=== PATIENT | female | born 1960 | race Two or more races ===

== ENCOUNTER 2023-07-22 15:02 | Outpatient (AMB) | payer OTHER, SELFPAY ==
--- NOTE | 2023-07-22 15:51 | HO.NEPHOV ---
Vital Signs 07/22/23 15:55 Height 5 ft 6 in Weight 235 lb 6 oz BMI 38.0 BP 116/80 Blood Pressure Location Rt brachial Position Sitting Pulse 54 Pulse Source Pulse Oximeter Pulse Oximetry (%) 95 Oxygen Delivery Method Room Air Intake Visit Reasons: CKD/ LVM Manager Equity Required: No Accompanied by: Self / Same As Patient Allergies NSAIDS (Non-Steroidal Anti-Inflamma Allergy (Verified 07/18/23 13:17) Unknown HPI Comments Details: I had the privilege of seeing Katina in follow-up for mild chronic kidney disease. She is tolerating angiotensin receptor donna. She maintains good hydration. She does not take any nonsteroidal anti-inflammatories on a regular basis. She denies shortness of breath, pedal edema, chest pain, paroxysmal nocturnal dyspnea, orthopnea, nausea, vomiting or diarrhea. She has no urinary symptoms, hematuria or orthostasis. She remains compliant with her medications. Her blood pressure has been well controlled. She did not have any new active complaints at the time of this office visit. [facility] Medical History (Updated 07/22/23 @ 16:07 by Nash Scott MD) Chronic kidney disease Hypertension Surgical History (Updated 07/22/23 @ 16:00 by Nancy Reardon MA) History of tubal ligation History of hand surgery History of foot surgery Social History (Updated 07/22/23 @ 15:57 by Nancy Reardon MA) Alcohol intake: current Patient Tobacco Use Status: Current someday Tobacco user Substance Use Type: Marijuana Physical Exam Vital Signs: Last Vital Signs Pulse 54 07/22/23 15:55 BP 116/80 07/22/23 15:55 Pulse Ox 95 07/22/23 15:55 Oxygen Delivery Method Room Air 07/22/23 15:55 BMI result Body Mass Index 38.0 Const General: comfortable and no acute distress Orientation/consciousness: patient oriented x3 HEENT Head: Yes normocephalic Mouth: Normal oral and palatal mucosa present Eyes EOM: EOMs intact bilaterally Neck Neck: Yes supple Resp Auscultation: clear to auscultation bilaterally Cardio Jugular venous distension: no JVD Rate: regular rate GI Palpation (GI): Soft to palpation Auscultation: normal bowel sounds General: Yes no CVA tenderness Back/Spine/Pelvis Back: no CVA tenderness Skin General skin exam: no rashes or lesions noted Neuro General: patient oriented x3 and moves all extremities Extrem General: Yes no pedal edema Results Reviewed Nephrology Results: Hgb 15.5 g/dl (12.0-16.0) 07/22/23 WBC 9.9 X10*3/uL (4.8-10.8) 07/22/23 Plt Count 280 X10*3/uL (160-400) 07/22/23 Sodium 141 mmol/L (135-145) 07/22/23 Potassium 4.0 mmol/L (3.3-5.1) 07/22/23 Chloride 107 mmol/L (96-108) 07/22/23 Carbon Dioxide 24 mmol/L (22-29) 07/22/23 BUN 22 mg/dL (9-16) H 07/22/23 Creatinine 0.89 mg/dL (0.5-1.4) 07/22/23 Calcium 9.7 mg/dL (8.4-10.2) 07/22/23 Urine Protein Negative mg/dL (Neg-Trace) 07/22/23 Urine Creatinine 174.42 mg/dL 07/22/23 Protein/Creatinin Ratio 0.09 (<0.2) 07/22/23 Assessment & Plan Assessment & Plan (1) CKD (chronic kidney disease) stage 3, GFR 30-59 ml/min: Code(s): N18.30 - Chronic kidney disease, stage 3 unspecified Category: Medical Qualifiers: Chronic kidney disease stage 3 subtype: stage 3a (GFR 45-59) Qualified Code(s): N18.31 - Chronic kidney disease, stage 3a (2) Hypertension: Code(s): I10 - Essential (primary) hypertension Category: Medical Qualifiers: Hypertension type: primary hypertension Qualified Code(s): I10 - Essential (primary) hypertension Plan Katina has mild CKD. Her renal functions are at baseline. Her blood pressure is at goal. She is tolerating angiotensin receptor donna. She does not have any proteinuria. She avoids nonsteroidal anti-inflammatories. She maintains good hydration. She has no orthostatic symptoms or hypervolemia. I did not make any medication changes today. All questions were answered. Follow-up appointment given. Orders: Orders Calcium 07/22/23 I10 - Essential (primary) hypertension, N18.31 - Chronic kidney disease, stage 3a UA and rflx microscopic 07/22/23 I10 - Essential (primary) hypertension, N18.31 - Chronic kidney disease, stage 3a Creatinine 07/22/23 I10 - Essential (primary) hypertension, N18.31 - Chronic kidney disease, stage 3a Blood Urea Nitrogen 07/22/23 I10 - Essential (primary) hypertension, N18.31 - Chronic kidney disease, stage 3a Electrolytes 07/22/23 I10 - Essential (primary) hypertension, N18.31 - Chronic kidney disease, stage 3a Protein Creatinine Ratio, Ur 07/22/23 I10 - Essential (primary) hypertension, N18.31 - Chronic kidney disease, stage 3a Complete Blood Count Auto Diff 07/22/23 I10 - Essential (primary) hypertension, N18.31 - Chronic kidney disease, stage 3a Coding Level of Care Code Est Pt Level 4 (66995) Diagnoses Stage 3a chronic kidney disease N18.31 Chronic kidney disease stage 3 subtype: stage 3a (GFR 45-59) Primary hypertension I10 Hypertension type: primary hypertension
[2023-07-22 15:55] VITALS: BP 116/80; PULSE 54; O2SAT 95; BMI 38.0
== END 2023-07-22 16:12 | disposition home or self-care (01) ==
PROVIDERS: PCP Internal Medicine; Visit Provider Internal Medicine Nephrology
DX: N18.31 Chronic kidney disease, stage 3a (principal); I10 Essential (primary) hypertension
CPT/HCPCS: 99214

== ENCOUNTER → 2023-07-22 15:02 | Outpatient (BNVA) | payer MEDICAID, SELFPAY | PROVIDERS: PCP Internal Medicine; Visit Provider Internal Medicine Nephrology ==

== ENCOUNTER 2023-07-22 16:14 | Outpatient (REF) | payer OTHER, SELFPAY ==
[2023-07-22 17:09] LABS: MANUAL DIFF FLAG NO
[2023-07-22 17:13] LABS: Basophils Percent Auto 0.3 % (0-2); Eosinophils Absolute Auto 0.4 X10*3/uL (0.0-0.4); Eosinophils Percent Auto 4.2 % (0-4); Hematocrit 46.3 % (37.0-47.0); Hemoglobin 15.5 g/dl (12.0-16.0); Imm Gran Abs Auto 0.05 X10*3/uL (0.00-0.03); Imm Gran Pct Auto 0.5 % (0.0-0.4); Lymphocytes Absolute Auto 1.6 X10*3/uL (1.2-4.9); Lymphocytes Percent Auto 16.5 % (20-40); Mean Corpuscular HGB Conc 33.5 g/dl (31.0-35.0); Mean Corpuscular Hemoglobin 29.8 pg (27.0-33.0); Mean Corpuscular Volume 88.9 fL (80.0-98.0); Mean Platelet Volume 10.5 fL (9.4-12.3); Monocytes Absolute Auto 0.6 X10*3/uL (0.1-1.2); Monocytes Percent Auto 6.3 % (2-11); Neutrophils Absolute Auto 7.2 x10*3/uL (2.0-8.3); Neutrophils Percent Auto 72.2 % (45-73); Platelet Count 280 X10*3/uL (160-400); Red Blood Count 5.21 X10*6/uL (4.20-5.50); White Blood Count 9.9 X10*3/uL (4.8-10.8)
[2023-07-22 17:21] LABS: Appearance Urine Clear; Color Urine Yellow; Glucose Urine UA Negative (Negative); Leukocyte Esterase Urine Small (1+) (Negative); Nitrite Urine Positive (Negative); PH 5.5 (5.0-9.0); Specific Gravity - Urine 1.025 (1.005-1.025); UMIC TRIGGER UA YES; Urine Blood Negative (Negative); Urine Ketones Negative (Negative); Urine Protein Negative (Neg-Trace)
[2023-07-22 17:25] LABS: Bacteria Urine 4+ (None Seen); Hyaline Casts Urine 0-2 /LPF (0-2); RBC Urine 0-2 /HPF (0-2); Squamous Epithelial Cell Urine 0-2 /HPF (0-2)
[2023-07-22 17:29] LABS: Anion Gap 14 (12-20); Blood Urea Nitrogen 22 mg/dL (9-16); Calcium 9.7 mg/dL (8.4-10.2); Carbon Dioxide 24 mmol/L (22-29); Chloride 107 mmol/L (96-108); Estimated Glomerular Filt Rate > 60; Sodium 141 mmol/L (135-145)
[2023-07-22 17:35] LABS: Creatinine Urine 174.42 mg/dL; Protein/Creatinine Ratio, Ur 0.09 (<0.2); Total Protein Urine Random 15 mg/dL (<12)
== END 2023-07-22 16:15 | disposition home or self-care (01) ==
LOC: HO.HKASLDS 16:14
PROVIDERS: Visit Provider Internal Medicine Nephrology
DX: I12.9 Hypertensive chronic kidney disease with stage 1 through stage 4 chronic kidney disease, or unspecified chronic kidney disease (principal); N18.31 Chronic kidney disease, stage 3a
CPT/HCPCS: 36415; 80051; 81001; 82310; 82565; 82570; 84156; 84520; 85025; 99212

== ENCOUNTER 2024-01-20 15:02 | Outpatient (AMB) | payer OTHER, SELFPAY ==
--- NOTE | 2024-01-20 15:31 | HO.NEPHOV ---
Vital Signs 01/20/24 15:33 Height 5 ft 6 in Weight 225 lb 2 oz BMI 36.3 BP 140/82 H Blood Pressure Location Lt brachial Position Sitting Pulse 65 Pulse Source Pulse Oximeter Pulse Oximetry (%) 98 Oxygen Delivery Method Room Air Intake Visit Reasons: 6 mon follow up-Conf Choke Reamer Required: No Accompanied by: Self / Same As Patient Allergies NSAIDS (Non-Steroidal Anti-Inflamma Allergy (Verified 01/20/24 15:41) Unknown HPI Comments Details: I had the privilege of seeing Katina in follow-up for mild chronic kidney disease. She is off Amlodipine and angiotensin receptor donna. She maintains good hydration. She does not take any nonsteroidal anti-inflammatories on a regular basis. She denies shortness of breath, pedal edema, chest pain, paroxysmal nocturnal dyspnea, orthopnea, nausea, vomiting or diarrhea. She has no urinary symptoms, hematuria or orthostasis. She remains compliant with her medications. Her blood pressure has been well controlled. She did not have any new active complaints at the time of this office visit. [facility], [facility] Medical History (Updated 07/22/23 @ 16:07 by Nash Scott MD) Chronic kidney disease Hypertension Surgical History History of tubal ligation History of hand surgery History of foot surgery Social History Alcohol intake: current Patient Tobacco Use Status: Current someday Tobacco user Substance Use Type: Marijuana Review of Systems Const All systems reviewed & are unremarkable except as noted in HPI and below Physical Exam Vital Signs: Last Vital Signs Pulse 65 01/20/24 15:33 BP 140/82 H 01/20/24 15:33 Pulse Ox 98 01/20/24 15:33 Oxygen Delivery Method Room Air 01/20/24 15:33 BMI result Body Mass Index 36.3 Const General: comfortable and no acute distress Orientation/consciousness: patient oriented x3 HEENT Head: Yes normocephalic Mouth: Normal oral and palatal mucosa present Eyes EOM: EOMs intact bilaterally Neck Neck: Yes supple Resp Auscultation: clear to auscultation bilaterally Cardio Jugular venous distension: no JVD Rate: regular rate GI Palpation (GI): Soft to palpation Auscultation: normal bowel sounds General: Yes no CVA tenderness Back/Spine/Pelvis Back: no CVA tenderness Skin General skin exam: no rashes or lesions noted Neuro General: patient oriented x3 and moves all extremities Extrem General: Yes no pedal edema Assessment & Plan Assessment & Plan (1) Hypertension: Code(s): I10 - Essential (primary) hypertension Category: Medical Qualifiers: Hypertension type: primary hypertension Qualified Code(s): I10 - Essential (primary) hypertension (2) CKD (chronic kidney disease) stage 3, GFR 30-59 ml/min: Code(s): N18.30 - Chronic kidney disease, stage 3 unspecified Category: Medical Qualifiers: Chronic kidney disease stage 3 subtype: stage 3a (GFR 45-59) Qualified Code(s): N18.31 - Chronic kidney disease, stage 3a Sherrie Ambriz has mild CKD. Her renal functions are at baseline. Her blood pressure is at goal. She does not have any proteinuria. She avoids nonsteroidal anti-inflammatories. She maintains good hydration. She has no orthostatic symptoms or hypervolemia. I did not make any medication changes today. All questions were answered. Follow-up appointment given. Orders: Orders Blood Urea Nitrogen 6 Months I10 - Essential (primary) hypertension Electrolytes 6 Months I10 - Essential (primary) hypertension Calcium 6 Months I10 - Essential (primary) hypertension Creatinine 6 Months I10 - Essential (primary) hypertension Protein Creatinine Ratio, Ur 6 Months I10 - Essential (primary) hypertension Coding Level of Care Code Est Pt Level 4 (23640) Diagnoses Primary hypertension I10 Hypertension type: primary hypertension Stage 3a chronic kidney disease N18.31 Chronic kidney disease stage 3 subtype: stage 3a (GFR 45-59)
[2024-01-20 15:33] VITALS: BP 140/82; PULSE 65; O2SAT 98; BMI 36.3
== END 2024-01-20 16:04 | disposition home or self-care (01) ==
LOC: HO.HKAS 15:02
PROVIDERS: PCP Internal Medicine; Visit Provider Internal Medicine Nephrology
DX: I10 Essential (primary) hypertension (principal); N18.31 Chronic kidney disease, stage 3a
CPT/HCPCS: 99214

== ENCOUNTER → 2024-01-20 15:02 | Outpatient (BNVA) | payer OTHER, SELFPAY | PROVIDERS: PCP Internal Medicine; Visit Provider Internal Medicine Nephrology | DX: I12.9 Hypertensive chronic kidney disease with stage 1 through stage 4 chronic kidney disease, or unspecified chronic kidney disease (principal); N18.31 Chronic kidney disease, stage 3a | CPT/HCPCS: 99212 ==

== ENCOUNTER 2024-07-22 15:07 | Outpatient (AMB) | payer OTHER, SELFPAY ==
--- NOTE | 2024-07-22 15:23 | HO.NEPHOV ---
Vital Signs 07/22/24 15:26 Height 5 ft 6 in Weight 226 lb 4 oz BMI 36.5 BP 118/74 Blood Pressure Location Rt brachial Position Sitting Pulse 65 Pulse Source Pulse Oximeter Pulse Oximetry (%) 94 Oxygen Delivery Method Room Air Intake Visit Reasons: 6mon follow up-Conf Snack Stewardess Required: No Accompanied by: Self / Same As Patient Allergies NSAIDS (Non-Steroidal Anti-Inflamma Allergy (Verified 07/22/24 15:26) Unknown HPI Comments Details: Katina was seen in follow-up for mild chronic kidney disease. She is off Amlodipine and angiotensin receptor blocke but on HCTZ. She maintains good hydration. She does not take any nonsteroidal anti-inflammatories on a regular basis. She denies shortness of breath, pedal edema, chest pain, paroxysmal nocturnal dyspnea, orthopnea, nausea, vomiting or diarrhea. She has no urinary symptoms, hematuria or orthostasis. She remains compliant with her medications. Her blood pressure has been well controlled. She did not have any new active complaints at the time of this office visit. [facility] Medical History (Updated 07/22/23 @ 16:07 by Nash Scott MD) Chronic kidney disease Hypertension Surgical History History of tubal ligation History of hand surgery History of foot surgery Social History Alcohol intake: current Patient Tobacco Use Status: Current someday Tobacco user Substance Use Type: Marijuana Physical Exam Vital Signs: Last Vital Signs Pulse 65 07/22/24 15:26 BP 118/74 07/22/24 15:26 Pulse Ox 94 07/22/24 15:26 Oxygen Delivery Method Room Air 07/22/24 15:26 BMI result Body Mass Index 36.5 Const General: comfortable and no acute distress Orientation/consciousness: patient oriented x3 HEENT Head: Yes normocephalic Mouth: Normal oral and palatal mucosa present Eyes EOM: EOMs intact bilaterally Neck Neck: Yes supple Resp Auscultation: clear to auscultation bilaterally Cardio Jugular venous distension: no JVD Rate: regular rate GI Palpation (GI): Soft to palpation Auscultation: normal bowel sounds General: Yes no CVA tenderness Back/Spine/Pelvis Back: no CVA tenderness Skin General skin exam: no rashes or lesions noted Neuro General: patient oriented x3 and moves all extremities Results Reviewed Nephrology Results: Hgb 15.5 g/dl (12.0-16.0) 07/22/23 WBC 9.9 X10*3/uL (4.8-10.8) 07/22/23 Plt Count 280 X10*3/uL (160-400) 07/22/23 Sodium 141 mmol/L (135-145) 07/22/23 Potassium 4.0 mmol/L (3.3-5.1) 07/22/23 Chloride 107 mmol/L (96-108) 07/22/23 Carbon Dioxide 24 mmol/L (22-29) 07/22/23 BUN 22 mg/dL (9-16) H 07/22/23 Creatinine 0.89 mg/dL (0.5-1.4) 07/22/23 Calcium 9.7 mg/dL (8.4-10.2) 07/22/23 Urine Protein Negative mg/dL (Neg-Trace) 07/22/23 Urine Creatinine 174.42 mg/dL 07/22/23 Protein/Creatinin Ratio 0.09 (<0.2) 07/22/23 Assessment & Plan Assessment & Plan (1) Hypertension: Code(s): I10 - Essential (primary) hypertension Category: Medical Qualifiers: Hypertension type: primary hypertension Qualified Code(s): I10 - Essential (primary) hypertension Plan Katina has mild CKD. Her renal functions are at baseline. Her blood pressure is at goal. She does not have any proteinuria. She avoids nonsteroidal anti-inflammatories. She maintains good hydration. She has no orthostatic symptoms or hypervolemia. I did not make any medication changes today. All questions were answered. Follow-up appointment given. Orders: Orders Creatinine 7 Months I10 - Essential (primary) hypertension Blood Urea Nitrogen 7 Months I10 - Essential (primary) hypertension Calcium 7 Months I10 - Essential (primary) hypertension Protein Creatinine Ratio, Ur 7 Months I10 - Essential (primary) hypertension Electrolytes 7 Months I10 - Essential (primary) hypertension UA and rflx microscopic 7 Months I10 - Essential (primary) hypertension Coding Level of Care Code Est Pt Level 4 (93111) Diagnoses Primary hypertension I10 Hypertension type: primary hypertension
[2024-07-22 15:26] VITALS: BP 118/74; PULSE 65; O2SAT 94; BMI 36.5
--- OUTSIDE RECORDS SUMMARY | 2024-07-22 17:01 | XMS_ITS | Clinical Summary ---
Author Organization [facility] Address [address] [place] [address] Care Team Providers Care Java Lead Architect Name Role Phone Unavailable Primary Care Provider Unavailabl e Social History Tobacco Use Types Packs/Day Years Used Date Smoking Tobacco: Never Assessed Comments Unknown Sex and Gender Information Value Date Recorded Sex Assigned at Not on file Legal Sex Female 4:47 PM EST Gender Identity Not on file Sexual Orientation Not on file Plan of Treatment Health Maintenance Due Date Last Done Comments Breast Cancer Screening 1960 Cervical Cancer Screening: P ap Smear 1981 Pneumococcal Vaccine: 50+ Ye ars (1 of 1 - PCV) 2010 Zoster Vaccines (1 of 2) 2010 Colorectal Cancer Screening: Colonoscopy 02/20/2022 Depression Screening 02/20/2022 HIV Screening 02/20/2022 Hepatitis C Screening 02/20/2022 Social Influencers of Health Screening 02/20/2022 COVID-19 Vaccine (1 - 2023-2 5 season) 2023 Influenza Vaccine (Season Ended) 2024 DTaP,Tdap,and Td Vaccines (2 - Td or Tdap) 02/08/2029 02/08/2019 RSV Immunization Adult Patie nts (1 - 1-dose 75+ series) 12/18/2035 HIB Vaccines Aged Out No longer eligi ble based on patient's age to complete this topic HPV Vaccines Aged Out No longer eligi ble based on patient's age to complete this topic Hepatitis A Vaccines Aged Out No long er eligible based on patient's age to complete this topic Hepatitis B Vaccines Aged Out No long er eligible based on patient's age to complete this topic IPV Vaccines Aged Out No longer eligi ble based on patient's age to complete this topic MMR Vaccines Aged Out No longer eligi ble based on patient's age to complete this topic Meningococcal ACWY Vaccine Aged Out N o longer eligible based on patient's age to complete this topic Meningococcal B Vaccine Aged Out No l onger eligible based on patient's age to complete this topic Pneumococcal Vaccine: Pediat rics (0 to 5 Years) and At-Risk Patients (6 to 64 Years) Aged Out No longer eligi ble based on patient's age to complete this topic RSV Immunization Patients Un shamar 20 months Aged Out No longer eligible b ased on patient's age to complete this topic Varicella Vaccines Aged Out No longer eligible based on patient's age to complete this topic
--- OUTSIDE RECORDS SUMMARY | 2024-07-22 17:01 | XMS_ITS | Clinical Summary ---
Author Organization [facility] Address [address] [place] [address] Phone Care Team Providers Care Oil Spraying Machine Operator Name Role Phone MartinezGoldenJusat Martinez Primary Care Provider Allergies Active Allergy Reactions Criticality Noted Date Comments Nsaids 06/18/2020 Medications aspirin (ST FESTUS) 81 MG EC tablet Take 1 tablet by mouth 1 (one) time each day 4 Active losartan (COZAAR) 50 MG tablet Take 1 tablet by mouth 1 (one) time each day Active omeprazole (PriLOSEC) [address] capsule Take 1 capsule by mouth 1 (one) time each day Active famotidine (PEPCID) 20 MG tablet Take 1 tablet by mouth 1 (one) time each day 1 Active atorvastatin (LIPITOR) 40 MG tablet Take 1 tablet by mouth 1 (one) time each day 1 Active ProAir HFA 108 (90 Base) MCG/ACT inhaler TAKE 2 PUFFS INHALATION 4 TIMES A DAY NEEDED FOR WHEEZING 1 Active Diclofenac Sodium 1 % gel APPLY 1 APPLICATION TOPICALLY 4 TIMES A DAY 1 Active Active Problems Problem Noted Date Diagnosed Date Hypertensive disorder 03/27/2021 Hypertension 03/27/2021 Acute nontraumatic kidney injury 06/18/2020 Benign hypertensive renal disease 06/18/2020 Blood in urine 06/18/2020 Chronic kidney disease stage 3 06/18/2020 Resolved Problems Problem Noted Date Diagnosed Date Resolved Date Arterial embolism 03/27/2021 03/27/2021 Overview (03/27/2021): eval for thrombophilia and FLORINDA and angiography were all negative and the thromboemboli never recurred. Asthma 03/27/2021 03/27/2021 Bunion of unspecified foot 03/27/2021 0 03/27/2021 Cannabis abuse 03/27/2021 03/27/2021 Chronic low back pain 03/27/20212021 Depressive disorder 03/27/2021 03/27/19 22 Diverticular disease 03/27/2021 022 Overview (03/27/2021): CT imaging showed some colon wall thickening. GI thought likely from segmental colitis associated with diverticulosis (SCAD) rather than inflammatory bowel disease as the distribution of colon wall thickening is limited to the sigmoid colon where she has diverticulosis and the colonoscopy was normal other than diverticulosis on 04/08/19 Dysplasia of cervix uteri 03/27/2021 Overview (03/27/2021): s/p laser Fracture of ankle 03/27/2021 03/27/2021 Overview (03/27/2021): several surgeries left ankle. left ankle now larger than right with chronic pain and often swelling. 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 Severe obesity 03/27/2021 03/27/2021 Tobacco user 03/27/2021 03/27/2021 Diabetes mellitus 06/18/2020 03/27/2021 Immunizations Immunization Administration Dates Next Due Moderna SARS-COV-2 02/13/2021,08/23/2020, 021 Pneumococcal Polysaccharide 05/05/2012, 4,02/11/2001 Shingrix 08/21/2021,06/18/2021 Tdap 02/08/2019,01/14/2013 Family History Medical History Relation Comments Hypertension Father grandmother Relation Status Comments Father Mother Alive Social History Tobacco Use Types Packs/Day Years Used Date Smoking Tobacco: Former Cigarettes Smokeless Tobacco: Former Tobacco Cessation:Counseling Given: Not Answered Alcohol Use Standard Drinks/Week Comments Yes 0 (1 standard drink = 0.6 oz pure alcohol) Alcoholic Drinks/day: Occasional social drink Comments Unknown Sex and Gender Information Value Date Recorded Sex Assigned at Not on file Legal Sex Female 5:08 PM EST Gender Identity Not on file Sexual Orientation Not on file Last Filed Vital Signs Vital Sign Reading Time Taken Comments Blood Pressure 122/80 08/22/2022 4:48 PM EDT Pulse 68 12/01/2018 12:00 PM EDT Temperature - - Respiratory Rate - - Oxygen Saturation - - Inhaled Oxygen Concentration - - Weight 104 kg (230 lb 3.2 oz) 08/22/2022 4:48 PM EDT Height 157.5 cm (5' 2 ) 06/21/2019 12:00 PM EDT Body Mass Index 42.1 06/21/2019 12:00 PM EDT Plan of Treatment Health Maintenance Due Date Last Done Comments Breast Cancer Screening 1960 Colorectal Cancer Screening: Annual FOBT 2009 Colorectal Cancer Screening: Colonoscopy 2009 Colorectal Cancer Screening: Sigmoidoscopy 2009 Pneumococcal Vaccine: 50+ Years (3 of 3 - PCV) 05/05/2013 05/05/2012, 12/26/2003, 02/11/2001 Influenza Vaccine (Season Ended) 2024 Pneumococcal Vaccine: Peds ( 0 to 5 Years) and At-Risk Patients (6 to 49 Years) Discontinued 05/05/2012, 12/26/2003, 02/11/2001 Hepatitis B Vaccine Aged Out No longe r eligible based on patient's age to complete this topic Insurance [facility] [place] [address] Medicaid Care Teams Oil Spraying Machine Operator Relationship Specialty Start Date End Date Justa Arnold [address] [place] [address] PCP - General 04/03/20
== END 2024-07-22 15:35 | disposition home or self-care (01) ==
LOC: HO.HKAS 15:08
PROVIDERS: PCP Internal Medicine; Visit Provider Internal Medicine Nephrology
DX: I10 Essential (primary) hypertension (principal)
CPT/HCPCS: 99214

== ENCOUNTER → 2024-07-22 15:07 | Outpatient (BNVA) | payer OTHER, SELFPAY | PROVIDERS: PCP Internal Medicine; Visit Provider Internal Medicine Nephrology | DX: I10 Essential (primary) hypertension (principal) | CPT/HCPCS: 99212 ==

== ENCOUNTER 2025-03-14 14:37 | Outpatient (REF) | payer OTHER, SELFPAY ==
--- OUTSIDE RECORDS SUMMARY | 2025-03-14 17:58 | XMS_ITS | Clinical Summary ---
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
--- OUTSIDE RECORDS SUMMARY | 2025-03-14 17:58 | XMS_ITS | Clinical Summary ---
Author Organization [facility] Address [address] [place] [address] Care Team Providers Care Research Technician Name Role Phone Unavailable Primary Care Provider [...] Breast Cancer Screening 1960 Colorectal Cancer Screening: Colonoscopy 1960 Cervical Cancer Screening: P ap Smear 1981 Pneumococcal Vaccine: 50+ Ye ars (1 of 1 - PCV) 2010 Zoster Vaccines (1 of 2) 2010 HIV Screening 02/20/2022 Hepatitis C Screening 02/20/2022 Social Influencers of Health Screening 02/20/2022 Depression Screening 03/24/2024 COVID-19 Vaccine (1 - 2024-2 6 season) 2024 Influenza Vaccine (#1) 2024 DTaP,Tdap,and Td Vaccines (2 - Td [...]
[2025-03-14 18:36] LABS: Anion Gap 12 (12-20); Blood Urea Nitrogen 19 mg/dL (9-16); Calcium 9.3 mg/dL (8.4-10.2); Carbon Dioxide 29 mmol/L (22-29); Chloride 112 mmol/L (96-108); Estimated Glomerular Filt Rate > 60; Potassium 4.1 mmol/L (3.3-5.1); Sodium 149 mmol/L (135-145)
[2025-03-14 18:50] LABS: Protein/Creatinine Ratio, Ur 0.08 (<0.2); Total Protein Urine Random 8 mg/dL (<12)
[2025-03-14 18:52] LABS: Appearance Urine Clear; Glucose Urine UA Negative (Negative); PH 6.0 (5.0-9.0); Specific Gravity - Urine 1.020 (1.005-1.025); UMIC TRIGGER UA YES
== END 2025-03-14 14:38 | disposition home or self-care (01) ==
LOC: HO.HKASLDS 14:37
PROVIDERS: Visit Provider Internal Medicine Nephrology
DX: I10 Essential (primary) hypertension (principal)
CPT/HCPCS: 36415; 80051; 81001; 81003; 82310; 82565; 82570; 84156; 84520

== ENCOUNTER 2025-03-15 13:40 | Outpatient (AMB) | payer OTHER, SELFPAY ==
--- NOTE | 2025-03-15 13:44 | HO.NEPHOV ---
Vital Signs 03/15/25 13:45 Height 5 ft 6 in Weight 226 lb BMI 36.5 BP 110/72 Blood Pressure Location Lt brachial Position Sitting Pulse 57 Pulse Source Pulse Oximeter Pulse Oximetry (%) 95 Oxygen Delivery Method Room Air Intake Visit Reasons: 7mon follow-up w/labs-Mailbox Full Traffic Police Officer Required: No Accompanied by: Self / Same As Patient Allergies NSAIDS (Non-Steroidal Anti-Inflamma Allergy (Verified 03/15/25 13:46) Unknown HPI Comments Details: Katina was seen in follow-up for mild chronic kidney disease. She is off Amlodipine and angiotensin receptor blocke but on HCTZ. She maintains good hydration. She does not take any nonsteroidal anti-inflammatories on a regular basis. She denies shortness of breath, pedal edema, chest pain, paroxysmal nocturnal dyspnea, orthopnea, nausea, vomiting or diarrhea. She has no urinary symptoms, hematuria or orthostasis. She remains compliant with her medications. Her blood pressure has been well controlled. She did not have any new active complaints at the time of this office visit. [facility] Medical History (Updated 03/15/25 @ 13:55 by Nash Scott MD) Chronic kidney disease Hypertension Surgical History History of tubal ligation History of hand surgery History of foot surgery Social History Alcohol intake: current Patient Tobacco Use Status: Current someday Tobacco user Substance Use Type: Marijuana Review of Systems Const All systems reviewed & are unremarkable except as noted in HPI and below Physical Exam Vital Signs: Last Vital Signs Pulse 57 03/15/25 13:45 BP 110/72 03/15/25 13:45 Pulse Ox 95 03/15/25 13:45 Oxygen Delivery Method Room Air 03/15/25 13:45 BMI result Body Mass Index 36.5 Const General: comfortable and no acute distress Orientation/consciousness: patient oriented x3 HEENT Head: Yes normocephalic Mouth: Normal oral and palatal mucosa present Eyes EOM: EOMs intact bilaterally Neck Neck: Yes supple Resp Auscultation: clear to auscultation bilaterally Cardio Jugular venous distension: no JVD Rate: regular rate GI Palpation (GI): Soft to palpation Auscultation: normal bowel sounds General: Yes no CVA tenderness Back/Spine/Pelvis Back: no CVA tenderness Skin General skin exam: no rashes or lesions noted Neuro General: patient oriented x3 and moves all extremities Extrem General: Yes no pedal edema Results Reviewed Nephrology Results: Sodium, (135-145) 149 mmol/L H 03/14/25 Potassium, (3.3-5.1) 4.1 mmol/L 03/14/25 Chloride, (96-108) 112 mmol/L H 03/14/25 Carbon Dioxide, (22-29) 29 mmol/L 03/14/25 BUN, (9-16) 19 mg/dL H 03/14/25 Creatinine, (0.5-1.4) 0.93 mg/dL 03/14/25 Calcium, (8.4-10.2) 9.3 mg/dL 03/14/25 Urine Protein, (Neg-Trace) Negative mg/dL 03/14/25 Urine Creatinine 106.01 mg/dL 03/14/25 Protein/Creatinin Ratio, (<0.2) 0.08 03/14/25 Assessment & Plan Assessment & Plan (1) Hypertension: Code(s): I10 - Essential (primary) hypertension Category: Medical Qualifiers: Hypertension type: primary hypertension Qualified Code(s): I10 - Essential (primary) hypertension (2) CKD (chronic kidney disease) stage 3, GFR 30-59 ml/min: Code(s): N18.30 - Chronic kidney disease, stage 3 unspecified Category: Medical Qualifiers: Chronic kidney disease stage 3 subtype: stage 3a (GFR 45-59) Qualified Code(s): N18.31 - Chronic kidney disease, stage 3a (3) Hypernatremia: Code(s): E87.0 - Hyperosmolality and hypernatremia Category: Medical Plan Katina has mild CKD. Her renal functions are at baseline. She needs to increase hydration given hypernatremia. Her blood pressure is at goal. She does not have any proteinuria. She avoids nonsteroidal anti-inflammatories. She has no orthostatic symptoms or hypervolemia. I did not make any medication changes today. All questions were answered. Follow-up appointment given. Orders: Orders Electrolytes 6 Months E87.0 - Hyperosmolality and hypernatremia, I10 - Essential (primary) hypertension, N18.31 - Chronic kidney disease, stage 3a Blood Urea Nitrogen 6 Months E87.0 - Hyperosmolality and hypernatremia, I10 - Essential (primary) hypertension, N18.31 - Chronic kidney disease, stage 3a Creatinine 6 Months E87.0 - Hyperosmolality and hypernatremia, I10 - Essential (primary) hypertension, N18.31 - Chronic kidney disease, stage 3a Coding Level of Care Code Est Pt Level 4 (21295) Diagnoses Primary hypertension I10 Hypertension type: primary hypertension Stage 3a chronic kidney disease N18.31 Chronic kidney disease stage 3 subtype: stage 3a (GFR 45-59) Hypernatremia E87.0
[2025-03-15 13:45] VITALS: BP 110/72; PULSE 57; O2SAT 95; BMI 36.5
--- OUTSIDE RECORDS SUMMARY | 2025-03-15 14:52 | XMS_ITS | Clinical Summary ---
Author Organization [facility] Address [address] [place] [address] Care Team Providers Care Utility Sales And Service Manager Name Role Phone Unavailable Primary Care Provider [...]
--- OUTSIDE RECORDS SUMMARY | 2025-03-15 14:52 | XMS_ITS | Clinical Summary ---
Author Organization [facility] Address [address] [place] [address] Phone Care Team Providers Care Glass Embosser Name Role Phone MartinezGoldenJusta Martinez Primary Care [...] complete this topic Insurance [facility] Medicaid [place] [address] Medicaid Care Teams Glass Embosser Relationship Specialty Start Date End Date Justa Arnold [address] [place] [address] PCP - General 04/03/20
== END 2025-03-15 13:58 | disposition home or self-care (01) ==
LOC: HO.HKAS 13:41
PROVIDERS: PCP Internal Medicine; Visit Provider Internal Medicine Nephrology
DX: I10 Essential (primary) hypertension (principal); N18.31 Chronic kidney disease, stage 3a; E87.0 Hyperosmolality and hypernatremia
CPT/HCPCS: 99214

== ENCOUNTER → 2025-03-15 13:40 | Outpatient (BNVA) | payer OTHER, SELFPAY | PROVIDERS: PCP Internal Medicine; Visit Provider Internal Medicine Nephrology | DX: I12.9 Hypertensive chronic kidney disease with stage 1 through stage 4 chronic kidney disease, or unspecified chronic kidney disease (principal); N18.31 Chronic kidney disease, stage 3a; E87.0 Hyperosmolality and hypernatremia; F17.200 Nicotine dependence, unspecified, uncomplicated | CPT/HCPCS: 99212 ==